=== PATIENT | female | born 1980 | race Caucasian/White ===

== ENCOUNTER 2017-11-09 12:09 | Emergency (ER) | payer OTHER ==
[2017-11-09 12:13] VITALS: BP 125/82
== END 2017-11-09 13:10 | disposition left against medical advice (07) ==
LOC: ED 12:09
DX: R06.02 Shortness of breath (principal); R11.10 Vomiting, unspecified

== ENCOUNTER 2018-06-29 10:41 | Emergency (ER) | payer OTHER ==
[2018-06-29 12:18] VITALS: BP 116/48
[2018-06-29] MEDS ORDERED: Ketorolac INJ* 60 MG/2 ML VIAL IM ONE (12:45)
--- NOTE | 2018-06-29 13:02 | ED ---
Throat Pain/Nasal Congestion - HPI Summary HPI Summary: Patient is a 37-year-old female presenting to the ED with right upper jaw pain and left lower jaw pain. Patient currently has 11 teeth left as all of them have been extracted over the years due to persistent ear infections. 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 She's been taking ibuprofen and Tylenol without good relief. Pain is currently a 7/10, constant and throbbing. Also endorses some "cutting" into the tongue and is requesting wax. She states she needs an antibiotic and has an appointment for a follow-up to the dentist next week. Denies any dysphagia or odynophagia. Denies any fevers , sweats, chills. - History of Current Complaint Chief Complaint: EDDentalPain Time Seen by Provider: 06/29/18 11:33 Hx Obtained From: Patient Onset/Duration: Sudden Onset Severity: Moderate Associated Signs And Symptoms: Positive: Negative - Epiglottits Risk Factors Epiglottis Risk Factors: Negative - Allergies/Home Medications Allergies/Adverse Reactions: Allergies Allergy/AdvReac Type Severity Reaction Status Date / Time amoxicillin Allergy Unknown Verified 06/29/18 12:28 Reaction Details aspirin Allergy Rash Verified 06/29/18 12:28 latex Allergy Blisters Verified 06/29/18 12:28 vancomycin Allergy Rash Verified 06/29/18 12:28 Home Medications: Home Medications Buprenorp/Nalox 8-2 MG FILM [Suboxone 8 mg-2 mg Sl Film] 20 mg SL DAILY [History Confirmed 06/29/18] PMH/Surg Hx/FS Hx/Imm Hx Previously Healthy: Yes Cardiovascular History: Reports: Hx Hypertension Respiratory History: Reports: Hx Asthma GI History: Reports: Other GI Disorders - HX OF ULCERS History: Reports: Hx Kidney Stones Musculoskeletal History: Reports: Hx Back Problems, Hx Bursitis - MIKAELA hips, Hx Scoliosis Sensory History: Reports: Hx Contacts or Glasses Opthamlomology History: Reports: Hx Contacts or Glasses Neurological History: Denies: Other Neuro Impairments/Disorders Psychiatric History: Reports: Hx Anxiety, Hx Depression, Hx Bipolar Disorder, Hx Suicide Attempt, Hx of Violent Episodes Against Others, Hx Substance Abuse - Cancer History Cancer Type, Location and Year: HX OF CERVICAL CA PT STATES IT DISAPPEARED - Surgical History Surgery Procedure, Year, and Place: TUBAL LIGATION 2006 Hx Anesthesia Reactions: No - Immunization History Hx Pertussis Vaccination: No Immunizations Up to Date: Yes Infectious Disease History: No Infectious Disease History: Reports: Hx Hepatitis Denies: Hx Clostridium Difficile, Hx Human Immunodeficiency Virus (HIV), Hx of Known/Suspected MRSA, Hx Shingles, Hx Tuberculosis, Traveled Outside the [place] in Last 30 Days - Family History Known Family History: Positive: None, Hypertension, Diabetes - Social History Occupation: Unemployed Lives: With Family Alcohol Use: Occasionally Hx Substance Use: Yes Substance Use Type: Reports: Cocaine, Heroin, Marijuana, Synthetic Drugs, Prescribed Substance Use Comment - Amount & Last Used: says last heroin was yesterday 09/23 - not in this hand Smoking Status (MU): Heavy Every Day Tobacco Smoker Type: Cigarettes Amount Used/How Often: 1 ppd Review of Systems Negative: Fever, Chills, Fatigue, Skin Diaphoresis Negative: Blurred Vision, Diplopia Positive: Dental Pain. Negative: Sore Throat, Ear Ache Negative: Palpitations, Chest Pain Negative: Shortness Of Breath, Cough Genitourinary: Negative Positive: no symptoms reported, see HPI Negative: Arthralgia, Myalgia Skin: Negative Neurological: Negative All Other Systems Reviewed And Are Negative: Yes Physical Exam Triage Information Reviewed: Yes Vital Signs On Initial Exam: Initial Vitals Temp Pulse Resp BP Pulse Ox 98.1 F 93 16 110/57 99 06/29/18 10:47 06/29/18 10:47 06/29/18 10:47 06/29/18 10:47 06/29/18 10:47 Vital Signs Reviewed: Yes Appearance: Positive: Well-Appearing, Well-Nourished Skin: Positive: Warm, Skin Color Reflects Adequate Perfusion Head/Face: Positive: Normal Head/Face Inspection Eyes: Positive: [place], Conjunctiva Clear Dental: Positive: Percussion Tenderness @, Gross Decay/Caries @, Dental Fracture @, Abscess @ Neck: Positive: Supple, No Lymphadenopathy Respiratory/Lung Sounds: Positive: Clear to Auscultation, Breath Sounds Present Cardiovascular: Positive: RRR, Pulses are Symmetrical in both Upper and Lower Extremities Musculoskeletal: Positive: Normal, Strength/ROM Intact Neurological: Positive: Speech Normal Psychiatric: Positive: Normal, Affect/Mood Appropriate AVPU Assessment: Alert Diagnostics - Vital Signs Vital Signs Temp Pulse Resp BP Pulse Ox 06/29/18 12:17 55 16 116/48 06/29/18 10:47 98.1 F 93 16 110/57 99 - Laboratory Lab Statement: Any lab studies that have been ordered have been reviewed, and results considered in the medical decision making process. EENT Course/Dx - Course Course Of Treatment: During the course of treatment, the patient is evaluated for right upper dental pain and left lower dental pain. Patient states she has had dental infections in the past and has been placed on antibiotics with follow -up tooth extractions. She currently has T left and has an appointment for a follow-up to get the rest of her teeth extracted. She is concerned over a worsening dental infection at this time. Denies any odynophagia or dysphagia. Denies any swelling. Denies any fevers, sweats, chills. Patient is given a Toradol IM 60 mg in the ED. She is prescribed an albuterol inhaler for concerns over some bronchitis over the past week or so and she is currently out of her albuterol inhaler. Patient is also given clindamycin 300 mg 4 times daily 5 days. - Diagnoses Provider Diagnoses: Dental caries, Pain, dental Discharge - Sign-Out/Discharge Documenting (check all that apply): Patient Departure - Discharge Plan Condition: Stable Disposition: HOME Prescriptions: Albuterol HFA INHALER* [Ventolin HFA Inhaler*] 1 puff INH Q4H PRN #1 mdi PRN Reason: Shortness Of Breath Clindamycin Cap(NF) [Clindamycin Cap 300 mg Cap(NF)] 300 mg PO TID #15 cap Patient Education Materials: Toothache (ED) Referrals: Nani Buckley MD [Primary Care Provider] - Additional Instructions: Please follow up with dentist as soon as possible Wax over the counter will help with symptoms ibuprofen 600mg four times daily - Billing Disposition and Condition Condition: STABLE Disposition: Home
== END 2018-06-29 13:08 | disposition home or self-care (01) ==
LOC: ED 10:41
DX: K02.9 Dental caries, unspecified (principal); R68.84 Jaw pain; Z88.0 Allergy status to penicillin; I10 Essential (primary) hypertension; Z88.6 Allergy status to analgesic agent; F17.210 Nicotine dependence, cigarettes, uncomplicated
CPT/HCPCS: 99284; J1885

== ENCOUNTER 2019-04-03 14:48 | Emergency (ER) | payer OTHER ==
[2019-04-03] MEDS ORDERED: Nicotine Lozenge* mini 4 MG LOZNG.MINI MT ONE (15:07)
--- NOTE | 2019-04-03 15:31 | ED ---
Substance Abuse/Use - HPI Summary HPI Summary: Pt is a 38 y/o F presenting to the ED via EMS for a cardiac arrest. Pt was found unconscious by her family on her bed. Pt admits to heroin, cocaine, marijuana use. Pt admits heroin on 04/02/19 injected. Pt also injects cocaine at 03:00 on 04/03/19. She took Xanax to relieve anxiety within the last 24 hours , but admits it is not prescribed to her. Pt admits drowsiness. Pt denies fever. 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 Pt admits recent stress surrounding a future incarceration and her daughter being . Pt cried in the room. - History Of Current Complaint Chief Complaint: EDSubstanceAbuse Stated Complaint: OVERDOSE PER EMS Time Seen by Provider: 04/03/19 14:54 Hx Obtained From: Patient Hx Last Menstrual Period: 09/14/14 Severity Initially: Moderate Severity Currently: Moderate Aggravating Factor(s): Nothing Alleviating Factor(s): Nothing Associated Signs And Symptoms: Other: - Negative fever; positive syncopal episode - Allergies/Home Medications Allergies/Adverse Reactions: Allergies Allergy/AdvReac Type Severity Reaction Status Date / Time amoxicillin Allergy Unknown Verified 04/03/19 15:01 Reaction Details aspirin Allergy Rash Verified 04/03/19 15:01 latex Allergy Blisters Verified 04/03/19 15:01 vancomycin Allergy Rash Verified 04/03/19 15:01 Home Medications: Home Medications NK [No Home Medications Reported] 04/03/19 [History Confirmed 04/03/19] PMH/Surg Hx/FS Hx/Imm Hx Previously Healthy: Yes Cardiovascular History: Reports: Hx Hypertension Respiratory History: Reports: Hx Asthma GI History: Reports: Other GI Disorders - HX OF ULCERS History: Reports: Hx Kidney Stones Musculoskeletal History: Reports: Hx Back Problems, Hx Bursitis - MIKAELA hips, Hx Scoliosis Sensory History: Reports: Hx Contacts or Glasses Opthamlomology History: Reports: Hx Contacts or Glasses Neurological History: Denies: Other Neuro Impairments/Disorders Psychiatric History: Reports: Hx Anxiety, Hx Depression, Hx Bipolar Disorder, Hx Suicide Attempt, Hx of Violent Episodes Against Others, Hx Substance Abuse - Cancer History Cancer Type, Location and Year: HX OF CERVICAL CA PT STATES IT DISAPPEARED - Surgical History Surgery Procedure, Year, and Place: TUBAL LIGATION 2005 Hx Anesthesia Reactions: No Infectious Disease History: No Infectious Disease History: Reports: Hx Hepatitis Denies: Hx Clostridium Difficile, Hx Human Immunodeficiency Virus (HIV), Hx of Known/Suspected MRSA, Hx Shingles, Hx Tuberculosis, Traveled Outside the [place] in Last 30 Days - Family History Known Family History: Positive: Hypertension, Diabetes - Social History Alcohol Use: Occasionally Hx Substance Use: Yes Substance Use Type: Reports: Cocaine, Heroin, Marijuana, Synthetic Drugs, Prescribed Substance Use Comment - Amount & Last Used: heroin and cocain 04/02/19 Smoking Status (MU): Heavy Every Day Tobacco Smoker Type: Cigarettes Amount Used/How Often: 1 ppd Review of Systems Positive: Other - Positive drowsiness. Negative: Fever Positive: Syncope - Resolved All Other Systems Reviewed And Are Negative: Yes Physical Exam - Summary Physical Exam Summary: Constitutional: Well-developed, Well-nourished, intoxicated Skin: Warm, Dry HENT: Normocephalic; Atraumatic Eyes: Conjunctiva normal. Pinpoint pupils. Neck: Musculoskeletal ROM normal neck. (-) JVD, (-) Stridor, (-) Nuchal rigidity Cardio: Rhythm regular, rate normal, Heart sounds normal; Intact distal pulses; Radial pulses are 2+ and symmetric. (-) Murmur Pulmonary/Chest wall: Effort normal. (-) Respiratory distress, (-) Wheezes, (-) Rales Abd: Soft, (-) tenderness, (-) Distension, (-) Guarding, (-) Rebound Musculoskeletal: (-) Edema Lymph: (-) Cervical adenopathy Neuro: Alert, Oriented x3. Mild slurred speech. Psych: Mood and affect Normal Triage Information Reviewed: Yes Vital Signs On Initial Exam: Initial Vitals Temp Pulse Resp BP Pulse Ox 97.3 F 82 18 119/80 96 04/03/19 14:54 04/03/19 14:54 04/03/19 14:54 04/03/19 14:54 04/03/19 14:54 Vital Signs Reviewed: Yes Procedures - Sedation Patient Received Moderate/Deep Sedation with Procedure: No Diagnostics - Vital Signs Vital Signs Temp Pulse Resp BP Pulse Ox 04/03/19 14:54 97.3 F 82 18 119/80 96 - Laboratory Lab Statement: Any lab studies that have been ordered have been reviewed, and results considered in the medical decision making process. Re-Evaluation - Re-Evaluation 1st re-eval Re-Evaluation Time: 15:38 Comment: 1st re-eval: At 15:38, ambulatory at bedside, pt is present with her boyfriend who will take her home. Course/Dx - Course Course Of Treatment: 38 y/o F p/w polysubstance abuse. - not altered on exam, appears slightly intoxicated on exam. States boyfriend coming. Will obs, await for friend and can go home if has safe discharge plan. No SI HI - Diagnoses Provider Diagnoses: Polysubstance abuse Discharge ED - Sign-Out/Discharge Documenting (check all that apply): Patient Departure - Discharge - Discharge Plan Condition: Stable Disposition: HOME Patient Education Materials: Polysubstance Abuse (ED) Referrals: Nani Buckley MD [Primary Care Provider] - Additional Instructions: You were seen in the ER for drug use. Please do not use drugs or drink and drive. It was a pleasure taking care of you today. - Billing Disposition and Condition Condition: STABLE Disposition: Home - Attestation Statements Document Initiated by Scribe: Yes Documenting Scribe: Lisandra Rodgers Provider For Whom Mary is Documenting (Include Credential): Angeles Leon MD. Scribe Attestation: I, Lisandra Rodgers, scribed for Angeles Leon MD. on 04/03/19 at 1953. Scribe Documentation Reviewed: Yes Provider Attestation: The documentation as recorded by the [email or web address] accurately reflects the service I personally performed and the decisions made by me, Angeles Leon MD. Status of Scribe Document: Viewed
[2019-04-03 16:10] VITALS: BP 124/73
== END 2019-04-03 15:50 | disposition home or self-care (01) ==
LOC: ED 14:48
DX: F19.10 Other psychoactive substance abuse, uncomplicated (principal); F41.9 Anxiety disorder, unspecified; R47.81 Slurred speech; I10 Essential (primary) hypertension; Z88.0 Allergy status to penicillin; Z88.6 Allergy status to analgesic agent; Z88.1 Allergy status to other antibiotic agents; Z91.040 Latex allergy status; F17.210 Nicotine dependence, cigarettes, uncomplicated
CPT/HCPCS: 99282; A9270-GY

== ENCOUNTER 2019-09-06 12:32 | Emergency (ER) | payer OTHER ==
[2019-09-06 12:39] VITALS: BP 126/78
[2019-09-06] MEDS ORDERED: Albuterol/Ipratropium NEB.SOL* Albuterol 2.5 MG/Ipratropium 0.5 MG 3 ML INH ONE (12:41)
--- NOTE | 2019-09-06 13:36 | UC ---
Shortness of Breath HPI - HPI Summary HPI Summary: PATIENT PRESENTS WITH A COUPLE OF DAYS OF INCREASED SHORTNESS OF BREATH, WHEEZING AND COUGH. HAS RIGHT-SIDED PLEURITIC PAIN THAT RADIATES TO HER BACK. WAS DIAGNOSED WITH INFLUENZA B 2 MONTHS AGO. HAD FLULIKE SYMPTOMS AGAIN LAST MONTH. IS A HEAVY SMOKER. HAS BEEN USING HER INHALER WITH NO IMPROVEMENT IN SYMPTOMS. NO FEVER. NO NAUSEA/VOMITING. - History of Current Complaint Chief Complaint: UCRespiratory Stated Complaint: SHORT OF BREATH Time Seen by Provider: 09/06/19 12:33 Hx Obtained From: Patient, Family/Battery Repairer - BOYFRIEND Hx Last Menstrual Period: 08/31/19 Onset/Duration: Gradual Onset, Lasting Days, Still Present Timing: Constant Current Severity: Moderate Dyspnea At: Rest, Exertion Aggravating Factors: Movement, Deep Breaths Alleviating Factors: Nothing Associated Signs & Symptoms: Positive: Cough (Productive), Wheezing, Chest Pain w/Cough. Negative: Fever, Chills, Dizzy - Allergy/Home Medications Allergies/Adverse Reactions: Allergies Allergy/AdvReac Type Severity Reaction Status Date / Time amoxicillin Allergy Unknown Verified 04/03/19 15:01 Reaction Details aspirin Allergy Rash Verified 04/03/19 15:01 latex Allergy Blisters Verified 04/03/19 15:01 vancomycin Allergy Rash Verified 04/03/19 15:01 Home Medications: Home Medications Albuterol 2.5MG/3ML (0.083%)* [Ventolin 2.5 MG/3 ML NEB.TITI*] 2.5 mg INH Q4H PRN #1 box 09/06/19 [Rx] Albuterol HFA INHALER* [Ventolin HFA Inhaler*] 2 puff INH Q4H PRN #1 mdi [Rx] Azithromycin 500 mg PO DAILY #5 tablet 09/06/19 [Rx] Cyclobenzaprine TAB* [Flexeril 10 MG TAB*] 1 tab PO DAILY 09/06/19 [History Confirmed 09/06/19] Fluconazole 150 MG (NF) [Diflucan 150 mg (NF)] 150 mg PO ONCE #2 tab 09/06/19 [ Rx] Fluticasone Propion/Salmeterol [Wixela 100-50 Inhub] 1 % INH DAILY 09/06/19 [ History Confirmed 09/06/19] Gabapentin 1 tab PO DAILY 09/06/19 [History Confirmed 09/06/19] Loratadine/Pseudoephedrine [Loratadine-D 12 Hour Tablet] 1 tab PO DAILY [History Confirmed 09/06/19] Naloxone Nasal [place]* [Narcan Nasal [place]] 4 mg ALT NARE 09/06/19 [History] Nebulizer [Mini Plus Nebulizer] 1 each MC Q4H PRN #1 each 09/06/19 [Rx] Pantoprazole TAB * [Protonix TAB*] 40 mg PO DAILY 09/06/19 [History Confirmed ] hydrOXYzine HCL TAB* [Atarax TAB 50 MG *] 1 tab PO DAILY 09/06/19 [History Confirmed 09/06/19] predniSONE 50 mg TAB [Deltasone 50 mg TAB] 50 mg PO DAILY #5 tab 09/06/19 [Rx] PMH/Surg Hx/FS Hx/Imm Hx Cardiovascular History: Hypertension Respiratory History: COPD, Asthma - Surgical History Surgical History: Yes Surgery Procedure, Year, and Place: TUBAL LIGATION 2005 - Family History Known Family History: Positive: Hypertension, Diabetes - Social History Alcohol Use: None Substance Use Type: None Substance Use Comment - Amount & Last Used: heroin and cocain 04/02/19 Smoking Status (MU): Never Smoked Tobacco Type: Cigarettes Amount Used/How Often: 1 ppd Household Exposure Type: Cigarettes - Immunization History Most Recent Influenza Vaccination: None Most Recent Tetanus Shot: October 2012 Most Recent Pneumonia Vaccination: None Review of Systems All Other Systems Reviewed And Are Negative: Yes Constitutional: Positive: Negative Respiratory: Positive: Shortness Of Breath, Cough Cardiovascular: Positive: Chest Pain Gastrointestinal: Positive: Negative Physical Exam Triage Information Reviewed: Yes Appearance: Well-Appearing, No Pain Distress, Well-Nourished Vital Signs: Initial Vital Signs Temp 98.2 F 09/06/19 12:35 Pulse 69 09/06/19 12:35 Resp 16 09/06/19 12:35 BP 126/78 09/06/19 12:35 Pulse Ox 95 09/06/19 12:35 Vital Signs Reviewed: Yes Eyes: Positive: Conjunctiva Clear ENT: Positive: Hearing grossly normal, Pharynx normal, TMs normal Neck: Positive: Supple, Nontender, No Lymphadenopathy Respiratory: Positive: No respiratory distress, No accessory muscle use, Decreased breath sounds. Negative: Wheezing Cardiovascular Exam: Normal Abdomen Description: Positive: Soft Musculoskeletal: Positive: No Edema Neurological: Positive: Alert Psychological: Positive: Age Appropriate Behavior Skin: Negative: Rashes Diagnostics - Radiology CXR Radiology Interpretation Completed By: Radiologist Summary of Radiographic Findings: Stigmata of obstructive lung disease. No acute pulmonary or cardiac process evident. Shortness of Breath Dx - Course Course Of Treatment: CHEST X-RAY WITH CHANGES CONSISTENT WITH COPD BUT NO ACUTE FINDINGS. PATIENT FELT BETTER AFTER A DOSE OF PREDNISONE AND A DUONEB HERE IN THE URGENT CARE. PATIENT LIKELY EXPERIENCING A COPD EXACERBATION. WILL COVER WITH AZITHROMYCIN AND WILL CONTINUE PREDNISONE DAILY FOR THE NEXT 5 DAYS. PRESCRIPTION FOR NEBULIZER AND ALBUTEROL SENT TO PHARMACY. DISCUSSED THAT I AM UNABLE TO RULE OUT A PE HERE IN THE URGENT CARE ALTHOUGH PER [facility] RULE SHE IS VERY LOW RISK. DISCUSSED TRANSFER TO THE EMERGENCY ROOM FOR FURTHER EVALUATION AND PATIENT DECLINES. STATES SHE WILL GO TO THE ER IF HER SYMPTOMS WORSEN. - Differential Dx/Diagnosis Provider Diagnosis: COPD exacerbation Discharge ED - Sign-Out/Discharge Documenting (check all that apply): Patient Departure All imaging exams completed and their final reports reviewed: Yes - Discharge Plan Condition: Stable Disposition: HOME Prescriptions: Albuterol 2.5MG/3ML (0.083%)* [Ventolin 2.5 MG/3 ML NEB.TITI*] 2.5 mg INH Q4H PRN #1 box PRN Reason: Wheezing Albuterol HFA INHALER* [Ventolin HFA Inhaler*] 2 puff INH Q4H PRN #1 mdi PRN Reason: Shortness Of Breath Azithromycin 500 mg PO DAILY #5 tablet Fluconazole 150 MG (NF) [Diflucan 150 mg (NF)] 150 mg PO ONCE #2 tab Nebulizer [Mini Plus Nebulizer] 1 each MC Q4H PRN #1 each PRN Reason: Shortness Of Breath predniSONE 50 mg TAB [Deltasone 50 mg TAB] 50 mg PO DAILY #5 tab Patient Education Materials: COPD (Chronic Obstructive Pulmonary Disease) (ED) Referrals: Nani Buckley MD [Primary Care Provider] - 1 Week Additional Instructions: CHEST X-RAY TODAY SHOWS CHANGES CONSISTENT WITH COPD BUT NOTHING ACUTE. I SUSPECT YOU ARE EXPERIENCING A COPD EXACERBATION LIKELY TRIGGERED BY YOUR RECENT RESPIRATORY ILLNESS. CONTINUE PREDNISONE ONCE DAILY FOR THE NEXT 5 DAYS. AZITHROMYCIN TO COVER FOR ANY INFECTIOUS PROCESS. ALBUTEROL INHALER REFILLED. ALBUTEROL NEBULIZER MACHINE AND MEDICATION PRESCRIBED WELL. I STRONGLY ENCOURAGE YOU TO QUIT SMOKING. FOLLOW-UP WITH YOUR PCP IF YOUR SYMPTOMS ARE NOT IMPROVING WITH THIS TREATMENT. GO TO THE ER WITHOUT FAIL IF YOU DEVELOP WORSENING PAIN, SHORTNESS OF BREATH, FEVER, NAUSEA/VOMITING OR ANY OTHER CONCERNING SYMPTOMS. - Billing Disposition and Condition Condition: STABLE Disposition: Home
== END 2019-09-06 14:05 | disposition home or self-care (01) ==
LOC: UCEAST 12:32
DX: J44.9 Chronic obstructive pulmonary disease, unspecified (principal); I10 Essential (primary) hypertension; Z79.899 Other long term (current) drug therapy; Z88.0 Allergy status to penicillin; Z88.8 Allergy status to other drugs, medicaments and biological substances; Z91.040 Latex allergy status; Z88.1 Allergy status to other antibiotic agents
CPT/HCPCS: 71046; 99212; A9270-GY; G0463; J7512